=== PATIENT | female | born 1985 | race Two or more races ===

== ENCOUNTER 2020-11-28 10:31 | Emergency (ER) | payer MEDICAID, OTHER ==
[~2020-11-28] VITALS: Ht 167.6 cm; Wt 85.7 kg
[2020-11-28 11:15] VITALS: BP 131/93
[2020-11-28] MEDS ORDERED: METHOCARBAMOL 500 MG TAB PO ONE (12:00)
[2020-11-28] MEDS ORDERED: IBUPROFEN 800 MG TAB PO ONE (12:00)
== END 2020-11-28 12:43 | disposition home or self-care (01) ==
LOC: ER 10:31
DX: S16.1XXA Strain of muscle, fascia and tendon at neck level, initial encounter (principal); S09.93XA Unspecified injury of face, initial encounter; V49.9XXA Car occupant (driver) (passenger) injured in unspecified traffic accident, initial encounter; Y93.89 Activity, other specified; Y92.89 Other specified places as the place of occurrence of the external cause; Y99.8 Other external cause status

== ENCOUNTER 2024-09-17 20:02 | Emergency (ER) | payer MEDICAID ==
[~2024-09-17] VITALS: Ht 167.6 cm; Wt 104.0 kg
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
[2024-09-17 23:06] VITALS: BP 132/84; PULSE 74; RESP 18; TEMP 98.3; O2SAT 98
[2024-09-17] MEDS: HYDROcodone-ACET 5/325MG TAB PO ONE (23:18)
[2024-09-17] MEDS: IBUPROFEN 800 MG TAB PO ONE (23:30)
[2024-09-17] MEDS ORDERED: METH-1181 PO (23:39)
[2024-09-17] MEDS ORDERED: IBUP-1456 PO (23:39)
== END 2024-09-18 00:05 | disposition home or self-care (01) ==
LOC: ER 20:02
DX: S93.491A Sprain of other ligament of right ankle, initial encounter (principal); S00.81XA Abrasion of other part of head, initial encounter; S40.812A Abrasion of left upper arm, initial encounter; Z88.0 Allergy status to penicillin; V49.40XA Driver injured in collision with unspecified motor vehicles in traffic accident, initial encounter; Y93.89 Activity, other specified; Y92.410 Unspecified street and highway as the place of occurrence of the external cause; Y99.8 Other external cause status
CPT/HCPCS: 29515; 73590; 73610